=== PATIENT | female | born 2000 | race Caucasian/White ===

== ENCOUNTER 2021-08-16 17:57 | Emergency (ER) | payer BC ==
[~2021-08-16] VITALS: Ht 188 cm; Wt 90.9 kg
[2021-08-16 18:12] VITALS: TEMP 98
[2021-08-16] MEDS ORDERED: NORCO 325 MG-51 TAB PO (18:59)
[2021-08-16 19:17] VITALS: BP 124/71; PULSE 94
== END 2021-08-16 19:16 | disposition home or self-care (01) ==
LOC: COL.ER 17:57
DX: T25.221A Burn of second degree of right foot, initial encounter (principal); Z23 Encounter for immunization; X12.XXXA Contact with other hot fluids, initial encounter